=== PATIENT | female | born 1975 | race Caucasian/White ===

== ENCOUNTER 2022-10-20 15:03 | Emergency (ER) | payer MEDICAID ==
[2022-10-20] MEDS ORDERED: Sodium Chloride 0.9% 10 ML Syringe FLUSH PRN (15:40)
[2022-10-20] MEDS ORDERED: Ketorolac 30 MG/ML SDV IVPUSH ONE (15:41)
[2022-10-20] MEDS ORDERED: HYDROmorphone 0.5 MG/0.5 ML Syringe IVPUSH ONE (15:41)
[2022-10-20] MEDS ORDERED: Sodium Chloride 0.9% 10 ML Syringe FLUSH ONE (16:54)
[2022-10-20] MEDS ORDERED: Iopamidol 755 Mg/ML 100 ML Bottle IVPUSH ONE (16:54)
[2022-10-20] MEDS ORDERED: Sodium Chloride 0.9% 100 ML IV SCH (17:00)
[2022-10-20] MEDS ORDERED: HYDROmorphone 1 MG/ML Syringe IVPUSH ONE (18:40)
== END 2022-10-20 18:59 | disposition home or self-care (01) ==
LOC: JD.ED 15:03
DX: R07.89 Other chest pain (principal); M79.601 Pain in right arm; Z88.2 Allergy status to sulfonamides; Z72.0 Tobacco use
CPT/HCPCS: 36415; 71275; 80053; 84484; 85025; 93005; 96374; 96375; 96376; 99285; J1170; J1885; J3490; Q9967; 93010; 99284